=== PATIENT | female | born 1995 | race African-American/Black ===

== ENCOUNTER 2020-07-13 22:27 | Emergency (ER) | payer OTHER ==
[2020-07-13] MEDS ORDERED: Albuterol Sulfate 2.5 mg/0.5 ml Neb ONE (22:51)
[2020-07-13] MEDS ORDERED: Albuterol Sulfate 2.5 mg/3 ml Neb ONE (22:52)
--- NOTE | 2020-07-13 22:54 | RAD ---
XR Chest 1 View Portable HISTORY: Cough and shortness of breath COMPARISON: None FINDINGS: The heart size is normal. The lungs are well expanded without focal areas of consolidation, pneumothorax or pleural effusions. IMPRESSION: No radiographic evidence of acute cardiopulmonary process.
[2020-07-13] MEDS ORDERED: predniSONE 20 MG TAB ONE (23:48)
== END 2020-07-13 23:56 | disposition home or self-care (01) ==
LOC: MADERS 22:27
DX: B34.9 Viral infection, unspecified (principal); M19.90 Unspecified osteoarthritis, unspecified site
CPT/HCPCS: 71045; 87804; 93005; J7512; J7611